=== PATIENT | female | born 1980 | race Caucasian/White ===

== ENCOUNTER → 2021-11-24 12:56 | Observation (INO) ==
[2021-11-24 12:30] LABS: Bilirubin,Urine Negative (Negative); Blood,Urine Negative (Negative); Clarity,Urine Clear (Clear); Color,Urine Light-Yellow (Yellow); Glucose,Urine (UA) Normal (Normal); Ketones,Urine Negative (Negative); Leukocyte Esterase,Urine Negative (Negative); Nitrite,Urine Negative (Negative); PH,Urine 6.5 pH Units (5.0-8.0); Protein,Urine Negative (Neg-Trace); Specific Gravity,Urine 1.013 (1.010-1.025); Urobilinogen,Urine Normal (Normal)
[2021-11-24 14:17] LABS: Candida DNA Not Detected (Not Detect); Gardnerella DNA DETECTED (Not Detect); Trichomonas DNA Not Detected (Not Detect)
== END | disposition home or self-care (01) ==
LOC: 1NENULAB
PROVIDERS: ADMIT Advanced Practice Midwife; ATTEND Advanced Practice Midwife

== ENCOUNTER 2021-12-29 14:09 | Inpatient (IN) ==
[2021-12-29 11:00] LABS: Basophils % 0.1 %; Eosinophils # 0.1 K/mcL (0.0-0.6); Eosinophils % 0.9 %; Hematocrit 32.7 % (35.3-44.9); Hemoglobin 11.3 g/dL (11.5-15.4); Immature Granulocytes % 0.5 % (0-4); Lymphocytes % 26.1 %; Mean Corpuscular HGB Conc 34.6 g/dL (31.6-35.5); Mean Corpuscular Hemoglobin 32.1 pg (28.0-33.3); Mean Corpuscular Volume 92.9 fL (83.0-100.0); Mean Platelet Volume 9.3 fL (9.4-12.4); Monocytes # 0.4 K/mcL (0.0-1.3); Monocytes % 5.7 %; Platelet Count 361 K/mcL (140-400); Red Blood Count 3.52 M/mcL (3.82-4.97); Red Cell Distribution Width 13.1 % (11.5-14.5); Segmented Neutrophils % 66.7 %; White Blood Count 7.5 K/mcL (4.3-11.1)
[2021-12-29 11:07] LABS: Creatinine,Urine 121 mg/dL; Protein/Creatinine Ratio,Urine 0.33 mg/mg (0.00-0.20)
[2021-12-29 11:18] LABS: Alanine Aminotransferase 12 Units/L (7-52); Aspartate Amino Transferase 19 Units/L (13-39); BUN/Creatinine Ratio 21 (6-26); Blood Urea Nitrogen 9 mg/dL (6-20); Lactate Dehydrogenase 116 Units/L (140-271); Uric Acid 4.9 mg/dL (2.3-7.6)
[2021-12-29 11:22] LABS: BUN/Creatinine Ratio 20 (6-26); Blood Urea Nitrogen 9 mg/dL (6-20); Calcium 8.5 mg/dL (8.6-10.3); Carbon Dioxide 20 mEq/L (23-29); Chloride 106 mEq/L (98-107); Glucose 75 mg/dL (70-105); Osmolality,Calculated 273 (280-300); Potassium 4.2 mEq/L (3.5-5.1); Sodium 133 mEq/L (136-145)
[2021-12-29 12:48] LABS: Bacteria,Urine Few per hpf (None-Few); Bilirubin,Urine Negative (Negative); Blood,Urine Negative (Negative); Clarity,Urine Clear (Clear); Color,Urine Yellow (Yellow); Glucose,Urine (UA) Normal (Normal); Ketones,Urine Negative (Negative); Leukocyte Esterase,Urine Trace (Negative); Mucus,Urine Few per lpf (None-Few); Nitrite,Urine Negative (Negative); PH,Urine 6.5 pH Units (5.0-8.0); Protein,Urine 30 mg/dL (Neg-Trace); RBC,Urine 0-3 per hpf (0-3); Squamous Epithelial Cell,Urine Few per hpf (None-Few); WBC,Urine 0-3 per hpf (0-3)
[~2021-12-29 14:09] MED LIST: *HR* FentaNYL (PF) 100 MCG/2 ML VIAL ONE; *HR* Midazolam HCl 2 MG/2 ML VIAL ONE; *HR* Morphine Sulfate/PF 10 MG/10 ML AMPUL ONE; *HR* Phenylephrine 10 MG/ML VIAL ONE; 0.9 % Sodium Chloride 1,000 ML IVC SCH; Acetaminophen/Butalbital/CaffeineTABLET PO PRN; Azithromycin 500 MG in 0.9 % Sodium Chloride 250 ML IVPB PRN; Clindamycin 900 MG/50 ML 900 MG/50 ML IV.SOLN IVPB ONE; EPHEDrine sulfate 50 MG/10 ML VIAL IVP ONE; EPHEDrine sulfate 50 MG/10 ML VIAL IVP PRN; Epidural Premix (fent/bupiv) 110 ML EP SCH; Famotidine 20 MG/2 ML VIAL IVP ONE; Ketorolac 30 MG/ML VIAL ONE; Methylergonovine 0.2 MG/ML AMPUL IM ONE; Metoclopramide 10 MG/2 ML VIAL IVP ONE; Ondansetron 4 MG/2 ML VIAL ONE; Ringers Solution, Lactated 1,000 ML IVC ONE
[2021-12-29] MEDS ORDERED: 0.9 % Sodium Chloride 1,000 ML IVC SCH ×2 (14:15→19:52)
[2021-12-29] MEDS ORDERED: Oxytocin 30 UNIT/503 ML BAG IVC SCH ×2 (14:15→19:52)
[2021-12-29] MEDS ORDERED: *HR* Oxytocin 10 UNIT/ML VIAL ONE (14:31)
[2021-12-29] MEDS ORDERED: Ringers Solution, Lactated 1,000 ML ONE ×2 (14:31→15:09)
[2021-12-29] MEDS ORDERED: Acetaminophen IV 1,000 MG/100 ML BAG IVPB PRN (14:35)
[2021-12-29] MEDS ORDERED: *HR* HYDROmorphone PF 0.5 MG/0.5 ML SYRINGE IVP PRN (14:35)
[2021-12-29] MEDS ORDERED: *HR* Meperidine 25 MG/ML SYRINGE IVP PRN (14:35)
[2021-12-29] MEDS ORDERED: Promethazine 6.25 MG in Water for inj. (sterile) 20 ML IVPB PRN (14:35)
[2021-12-29] MEDS ORDERED: *HR* Labetalol 20 MG/4 ML SYRINGE IVP PRN (14:35)
[2021-12-29 14:43] LABS: Amphetamine Screen,Urine Negative ng/mL (Cutoff=1000); Barbiturate Screen,Urine Negative ng/mL (Cutoff=200); Benzodiazepines Screen,Urine Negative ng/mL (Cutoff=200); Cannabinoid Screen,Urine Negative ng/mL (Cutoff = 50); Cocaine Screen,Urine Negative ng/mL (Cutoff= 300); Opiate Screen,Urine Negative ng/mL (Cutoff=300); Phencyclidine Screen,Urine Negative ng/mL (Cutoff=25)
[2021-12-29] MEDS ORDERED: Acetaminophen IV 1,000 MG/100 ML BAG IVPB ONE (16:07)
[2021-12-29] MEDS ORDERED: Methylergonovine 0.2 MG/ML AMPUL IM ONE (17:10)
[2021-12-29] MEDS ORDERED: Ondansetron 4 MG/2 ML VIAL IVP PRN (19:52)
[2021-12-29] MEDS ORDERED: Simethicone 80 MG TAB.CHEW PO PRN (19:52)
[2021-12-29] MEDS ORDERED: Metoclopramide 10 MG/2 ML VIAL IVP PRN (19:52)
[2021-12-29] MEDS: Ibuprofen 600 MG TABLET PO SCH (20:41)
[2021-12-29] MEDS: Acetaminophen 325 MG TABLET PO SCH (20:42)
[2021-12-30] MEDS: Ibuprofen 600 MG TABLET PO SCH ×3 (02:55→17:11)
[2021-12-30] MEDS: Acetaminophen 325 MG TABLET PO SCH ×3 (02:56→17:11)
[2021-12-30 04:09] LABS: Basophils % 0.2 %; Eosinophils % 0.1 %; Hematocrit 28.1 % (35.3-44.9); Immature Granulocytes % 0.5 % (0-4); Lymphocytes % 17.2 %; Mean Corpuscular HGB Conc 34.2 g/dL (31.6-35.5); Mean Corpuscular Hemoglobin 31.9 pg (28.0-33.3); Mean Corpuscular Volume 93.4 fL (83.0-100.0); Monocytes # 0.6 K/mcL (0.0-1.3); Monocytes % 5.5 %; Platelet Count 329 K/mcL (140-400); Red Blood Count 3.01 M/mcL (3.82-4.97); Red Cell Distribution Width 12.8 % (11.5-14.5); Segmented Neutrophils % 76.5 %
[2021-12-30 04:14] LABS: Hemoglobin 9.6 g/dL (11.5-15.4); Neutrophils # 8.7 K/mcL (1.6-8.9); White Blood Count 11.4 K/mcL (4.3-11.1)
[2021-12-30] MEDS: Prenatal Vit/FA 1 EACH TABLET PO SCH (08:26)
[2021-12-30] MEDS: *HR* Buprenorphine HCl 8 MG TAB.SUBL SL SCH (08:26)
[2021-12-30] MEDS: *HR* OxyCODONE ER (12 HR) 10 MG TABLET PO PRN (19:45)
[2021-12-31] MEDS: Ibuprofen 600 MG TABLET PO SCH ×2 (02:22→08:21)
[2021-12-31 07:23] VITALS: BP 122/84; PULSE 80; TEMP 97.9; O2SAT 96
[2021-12-31] MEDS: Prenatal Vit/FA 1 EACH TABLET PO SCH (08:21)
[2021-12-31] MEDS: *HR* Buprenorphine HCl 8 MG TAB.SUBL SL SCH (08:21)
[2021-12-31] MEDS: Acetaminophen 325 MG TABLET PO SCH (08:21)
[2021-12-31] MEDS: *HR* OxyCODONE ER (12 HR) 10 MG TABLET PO PRN (09:15)
== END 2021-12-31 12:21 | disposition home or self-care (01) | DRG 787 ==
LOC: 1NENULAB → 1NENUOBS 19:35
PROVIDERS: ADMIT Obstetrics & Gynecology; ATTEND Obstetrics & Gynecology